=== PATIENT | male | born 1950 | race Caucasian/White ===

== ENCOUNTER 2017-06-19 21:38 | Emergency (ER) | payer MEDICARE, OTHER ==
[2017-06-19] MEDS ORDERED: Insulin Regular, Human 100 Units/ML 3 ML Vial SUBCUT ONE ×2 (22:12→22:58)
[2017-06-19] MEDS ORDERED: Metoprolol Tartrate 25 MG Tab PO ONE (22:14)
[2017-06-19] MEDS ORDERED: Sodium Chloride 0.9% 1,000 ML IV ONE (22:30)
--- NOTE | 2017-06-19 22:33 | EDM.PDOC ---
ED HPI GENERAL MEDICAL PROBLEM - General Chief Complaint: General Stated Complaint: Unsteady Gait, Hyperglycemia Time Seen by Provider: 06/19/17 22:11 Source of Information: Reports: Patient, Other ([facility] nursing staff) History Limitations: Reports: Other (Chronic cognitive decline) - History of Present Illness INITIAL COMMENTS - FREE TEXT/NARRATIVE: Patient sent from [facility] home for evaluation of elevated blood sugar. Their bedside glucose monitor read "over 500". Patient has zero complaints and feels fine when asked. ROS is entirely negative. He knows that he is in the hospital and realizes that it will soon be June. He cannot say the year nor what town he is in. [facility] noted only that he wasn't quite his usual self today and appeared a bit more unsteady on his feet. Also staff said that patient had complained about feeling uncomfortable in the abdomen earlier. However no noted other changes per staff, no recent illness/fevers/GI changes etc. Patient has been otherwise well. Has not taken evening meds. - Related Data Allergies Allergy/AdvReac Type Severity Reaction Status Date / Time No Known Allergies Allergy Verified 06/19/17 21:50 Home Meds: Home Meds Aspirin [Children's Aspirin] 81 mg PO DAILY 07/07/14 [History] Cyanocobalamin (Vitamin B-12) [Vitamin B-12] 1,000 mcg PO DAILY 07/07/14 [ History] FLUoxetine HCl [Prozac] 20 mg PO DAILY 07/07/14 [History] Lisinopril 10 mg PO DAILY 07/07/14 [History] Metoprolol Tartrate 25 mg PO BID 07/07/14 [History] Simvastatin [Zocor] 40 mg PO BEDTIME 07/07/14 [History] Insulin Glarg,Human.Rec.Analog [LantUS] 22 unit SUBCUT DAILY 08/25/14 [History] Ibuprofen 400 mg PO Q4H PRN 07/11/16 [History] Donepezil HCl [Aricept] 10 mg PO DAILY 06/19/17 [History] Hydrocodone/Acetaminophen [Hydrocodon-Acetaminophen 5-325] 1 tab PO Q4HR PRN [History] Memantine HCl [Namenda] 5 mg PO BID 06/19/17 [History] Past Medical History HEENT History: Reports: Impaired Vision Cardiovascular History: Reports: High Cholesterol, Hypertension, PVD Genitourinary History: Reports: Other (See Below) Other Genitourinary History: MIcroscopic hematuria Musculoskeletal History: Reports: Other (See Below) Other Musculoskeletal History: Dorsalgia Neurological History: Reports: CVA, TIA Psychiatric History: Reports: Anxiety, Other (See Below) Other Psychiatric History: 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 Endocrine/Metabolic History: Reports: Diabetes, Type II Hematologic History: Reports: B12 Deficiency Dermatologic History: Reports: Cellulitis, Other (See Below) Other Dermatologic History: Dermatitis Social & Family History - Family History Family Medical History: Noncontributory - Tobacco Use Smoking Status *Q: Current Every Day Smoker Years of Tobacco use: 55 Packs/Tins Daily: 1 - Caffeine Use Caffeine Use: Reports: Coffee - Alcohol Use Days Per Week of Alcohol Use: 0 - Recreational Drug Use Recreational Drug Use: No - Living Situation & Occupation Living situation: Reports: Single, Other ED ROS GENERAL - Review of Systems Review Of Systems: ROS reveals no pertinent complaints other than HPI. (See HPI for [facility] staff input. Patient denies all problems during ROS.) ED EXAM, GENERAL - Physical Exam Exam: See Below Exam Limited By: No Limitations General Appearance: Alert, WD/WN, No Apparent Distress Eye Exam: Bilateral Eye: EOMI, PERRL Ears: Normal External Exam, Normal Canal, Hearing Grossly Normal, Other (TMs blocked by cerumen, right greater than left) Nose: Normal Inspection Throat/Mouth: Normal Inspection, Normal Lips, Normal Gums, Normal Oropharynx, Normal Voice, No Airway Compromise, Other (has dentures) Head: Atraumatic, Normocephalic Neck: Normal Inspection, Supple, Non-Tender, Full Range of Motion. No: Lymphadenopathy (L), Lymphadenopathy (R) Respiratory/Chest: No Respiratory Distress, Lungs Clear, Normal Breath Sounds, No Accessory Muscle Use, Chest Non-Tender Cardiovascular: Normal Peripheral Pulses, Regular Rate, Rhythm, No Edema, No Murmur Peripheral Pulses: 2+: Radial (L), Radial (R), Dorsalis Pedis (L), Dorsalis Pedis (R) GI/Abdominal: Normal Bowel Sounds, Soft, Non-Tender, No Distention, Other (Has abdominal bruit noted. ) (Male) Exam: Deferred Rectal (Males) Exam: Deferred Back Exam: Normal Inspection. No: CVA Tenderness (L), CVA Tenderness (R), Muscle Spasm, Paraspinal Tenderness, Vertebral Tenderness Extremities: Normal Inspection, Normal Range of Motion, Non-Tender, No Pedal Edema, Normal Capillary Refill Neurological: Alert, Normal Reflexes, Memory Loss Recent Events, Other (equal tone/strength limbs) Psychiatric: Normal Affect, Normal Mood Skin Exam: Warm, Dry, Intact, Normal Color EKG INTERPRETATION EKG Date: 06/19/17 Time: 22:50 Rhythm: NSR Rate (Beats/Min): 99 Drake: Normal P-Wave: Present QRS: Other (Incomplete right BBB) ST-T: Normal QT: Normal Comparison: Other: (only previous EKG on file was sinus tachycardia) Course - Vital Signs Last Recorded V/S: Last Vital Signs Temp 37.3 C 06/19/17 21:43 Pulse 103 H 06/19/17 22:27 Resp 20 06/19/17 21:43 BP 198/70 H 06/19/17 22:27 Pulse Ox 94 L 06/19/17 21:43 - Orders/Labs/Meds Orders: Active Orders 24 hr Category Date Time Status EKG Documentation Completion [RC] ASDIRECTED Care 06/19/17 22:32 Ordered Head wo Cont [CT] Stat Exams 06/19/17 22:29 Ordered Insulin Regular, Human [HumuLIN R] Med 06/20/17 00:07 Once 10 unit SUBCUT ONETIME ONE Sodium Chloride 0.9% [Normal Saline] 1,000 ml Med 06/19/17 22:30 Ordered IV .BOLUS Medication Orders Sodium Chloride (Normal Saline) 1,000 mls @ 500 mls/hr IV .BOLUS ONE Stop: 06/20/17 00:29 Last Admin: 06/19/17 22:43 Dose: 500 mls/hr Insulin Human Regular (Humulin R) 10 unit SUBCUT ONETIME ONE PRN Reason: Protocol Stop: 06/20/17 00:08 Labs: Laboratory Tests 06/19/17 06/19/17 06/19/17 Range/Units 21:45 21:45 21:45 WBC 10.2 (4.0-10.2) K/uL RBC 4.91 (4.33-5.41) M/uL Hgb 15.6 D (13.1-16.8) g/dL Hct 51.8 H (39.0-49.0) % MCV 105.5 H D (84.0-98.0) fL MCH 31.8 (28.2-33.3) pg MCHC 30.1 L (31.7-36.0) g/dL RDW 13.6 (11.2-14.1) % Plt Count 173 D (150-350) K/uL Neut % (Auto) 90.9 H (45.0-80.0) % Lymph % (Auto) 4.8 L (10.0-50.0) % [place] % (Auto) 4.1 (2.0-14.0) % Eos % (Auto) 0.0 (0.0-5.0) % Baso % (Auto) 0.2 (0.0-2.0) % Neut # (Auto) 9.25 H (1.40-7.00) K/uL Lymph # (Auto) 0.49 L (0.50-3.50) K/uL [place] # (Auto) 0.42 (0.00-1.00) K/uL Eos # (Auto) 0.00 (0.00-0.50) K/uL Baso # (Auto) 0.02 (0.00-0.20) K/uL Sodium 130 L (136-145) mmol/L Potassium 5.5 H (3.5-5.1) mmol/L Chloride 93 L (98-107) mmol/L Carbon Dioxide 24.2 (21.0-32.0) mmol/L BUN 49 H D (7-18) mg/dL Creatinine 1.23 H (0.51-1.17) mg/dL Est Cr Clr Drug Dosing 46.76 mL/min Estimated GFR (MDRD) 59 mL/min Glucose 1586 H* (74-106) mg/dL Calcium 9.6 (8.5-10.1) mg/dL Total Bilirubin 0.3 (0.2-1.0) mg/dL AST 8 L (15-37) U/L ALT 28 (12-78) U/L Alkaline Phosphatase 197 H (46-116) IU/L Troponin I 0.029 (0.000-0.056) ng/mL Total Protein 7.8 (6.4-8.2) g/dL Albumin 4.1 (3.4-5.0) g/dL Specimen Type Urine Color Urine Appearance Urine pH (5.0-9.0) Ur Specific [place] (1.005-1.030) Urine Protein (NEGATIVE) mg/dL Urine Glucose (UA) (NEGATIVE) mg/dL Urine Ketones (NEGATIVE) mg/dL Urine Occult Blood (NEGATIVE) Urine Nitrite (NEGATIVE) Urine Bilirubin (NEGATIVE) Urine Urobilinogen (0.2-1.0) E.U./dL Ur Leukocyte Esterase (NEGATIVE) Urine RBC /HPF Urine WBC /HPF Ur Epithelial Cells /LPF Urine Bacteria (NONE TO FEW) /HPF 06/19/17 06/19/17 Range/Units 22:10 23:45 WBC (4.0-10.2) K/uL RBC (4.33-5.41) M/uL Hgb (13.1-16.8) g/dL Hct (39.0-49.0) % MCV (84.0-98.0) fL MCH (28.2-33.3) pg MCHC (31.7-36.0) g/dL RDW (11.2-14.1) % Plt Count (150-350) K/uL Neut % (Auto) (45.0-80.0) % Lymph % (Auto) (10.0-50.0) % [place] % (Auto) (2.0-14.0) % Eos % (Auto) (0.0-5.0) % Baso % (Auto) (0.0-2.0) % Neut # (Auto) (1.40-7.00) K/uL Lymph # (Auto) (0.50-3.50) K/uL [place] # (Auto) (0.00-1.00) K/uL Eos # (Auto) (0.00-0.50) K/uL Baso # (Auto) (0.00-0.20) K/uL Sodium (136-145) mmol/L Potassium (3.5-5.1) mmol/L Chloride (98-107) mmol/L Carbon Dioxide (21.0-32.0) mmol/L BUN (7-18) mg/dL Creatinine (0.51-1.17) mg/dL Est Cr Clr Drug Dosing mL/min Estimated GFR (MDRD) mL/min Glucose 1440 H* (74-106) mg/dL Calcium (8.5-10.1) mg/dL Total Bilirubin (0.2-1.0) mg/dL AST (15-37) U/L ALT (12-78) U/L Alkaline Phosphatase (46-116) IU/L Troponin I (0.000-0.056) ng/mL Total Protein (6.4-8.2) g/dL Albumin (3.4-5.0) g/dL Specimen Type Urinvoid Urine Color Yellow Urine Appearance Clear Urine pH 5.0 (5.0-9.0) Ur Specific [place] <= 1.005 (1.005-1.030) Urine Protein Negative (NEGATIVE) mg/dL Urine Glucose (UA) 500 H (NEGATIVE) mg/dL Urine Ketones Negative (NEGATIVE) mg/dL Urine Occult Blood Negative (NEGATIVE) Urine Nitrite Negative (NEGATIVE) Urine Bilirubin Negative (NEGATIVE) Urine Urobilinogen 0.2 (0.2-1.0) E.U./dL Ur Leukocyte Esterase Negative (NEGATIVE) Urine RBC 0-5 /HPF Urine WBC 0-5 /HPF Ur Epithelial Cells Rare /LPF Urine Bacteria Rare (NONE TO FEW) /HPF Meds: Medications Generic Name Dose Route Start Last Admin Trade Name Freq PRN Reason Stop Dose Admin Sodium Chloride 1,000 mls @ 500 mls/hr 06/19/17 22:30 06/19/17 22:43 Normal Saline IV 06/20/17 00:29 500 mls/hr .BOLUS ONE Administration Insulin Human Regular 10 unit 06/20/17 00:07 Humulin R SUBCUT 06/20/17 00:08 ONETIME ONE Protocol Discontinued Medications Generic Name Dose Route Start Last Admin Trade Name Freq PRN Reason Stop Dose Admin Insulin Human Regular 10 unit 06/20/17 22:12 Humulin R SUBCUT 06/20/17 22:13 ONETIME ONE Protocol Insulin Human Regular 10 unit 06/19/17 22:12 06/19/17 22:39 Humulin R SUBCUT 06/19/17 22:13 10 units ONETIME ONE Administration Protocol Insulin Human Regular 5 unit 06/19/17 22:58 06/19/17 23:09 Humulin R SUBCUT 06/19/17 22:59 5 unit ONETIME ONE Administration Protocol Metoprolol Tartrate 25 mg 06/19/17 22:14 06/19/17 22:27 Lopressor PO 06/19/17 22:15 25 mg ONETIME ONE Administration - Radiology Interpretation Free Text/Narrative:: No acute changes on head CT per Radiology CT Results Date: 06/19/17 CT Results Time: 23:57 - Re-Assessments/Exams Free Text/Narrative Re-Assessment/Exam: 06/19/17 22:43 IV access obtained. Patient ordered 10u regular insulin SQ. Labs requested. NS IV fluids started. Blood sugar noted to be 1586. WBC normal. Hgb high normal, HCT also elevated. Na 130 BUN/Cr elevated. K 5.5 Troponin within normal limits. Call placed to [facility] in [place] to check to see if they were potentially open to admission as patient would require admission for treatment of hyperglycemia. MOD requested that we include head CT in workup and this was ordered. Patient given evening dose of Metoprolol. BP elevated. UA request still pending. Exam non-focal overall. Free Text/Narrative Re-Assessment/Exam: 06/20/17 00:09 Patient continues to rest comfortably. BP improved after receiving Metoprolol. No complaints. Unremarkable head CT. UA did not reveal UTI. Blood sugar improved to 1440. Additional SQ insulin given. Results called to at [facility]. He accepted the patient for transfer to their facility for admission and treatment of hyperglycemia. No specific trigger for hyperglycemic episode identified at this time. Departure - Departure Time of Disposition: 00:13 Disposition: DC/[facility] to [facility] Condition: Good Clinical Impression: Hyperglycemia, Hyponatremia - Discharge Information Referrals: Lilia Martinez MD [Primary Care Provider] - Forms: ED Department Discharge - My Orders Last 24 Hours: My Active Orders 06/20/17 00:07 Insulin Regular, Human [HumuLIN R] 10 unit SUBCUT ONETIME ONE 06/19/17 22:29 Head wo Cont [CT] Stat 06/19/17 22:30 Sodium Chloride 0.9% [Normal Saline] 1,000 ml IV .BOLUS 06/19/17 22:32 EKG Documentation Completion [RC] ASDIRECTED - Assessment/Plan Last 24 Hours: My Active Orders 06/20/17 00:07 Insulin Regular, Human [HumuLIN R] 10 unit SUBCUT ONETIME ONE 06/19/17 22:29 Head wo Cont [CT] Stat 06/19/17 22:30 Sodium Chloride 0.9% [Normal Saline] 1,000 ml IV .BOLUS 06/19/17 22:32 EKG Documentation Completion [RC] ASDIRECTED
[2017-06-20] MEDS ORDERED: Insulin Regular, Human 100 Units/ML 3 ML Vial SUBCUT ONE ×2 (00:07→22:12)
[2017-06-20] MEDS: Sodium Chloride 0.9% 1,000 ML IV ONE ×2 (00:40→04:16)
[2017-06-20 06:20] VITALS: BP 176/73
== END 2017-06-20 00:45 ==
LOC: LL.ED 21:38
DX: E11.65 Type 2 diabetes mellitus with hyperglycemia (principal); E87.1 Hypo-osmolality and hyponatremia; I10 Essential (primary) hypertension; E78.00 Pure hypercholesterolemia, unspecified; Z79.82 Long term (current) use of aspirin; Z79.4 Long term (current) use of insulin; Z79.899 Other long term (current) drug therapy
CPT/HCPCS: 36415; 70450; 80053; 81001; 82947; 84484; 85025; 93005; 96360; 96361; 96372; 99285; A9270; J1815; J7030; 93010

== ENCOUNTER 2018-11-19 07:09 | Emergency (ER) | payer MEDICARE, MEDICAID ==
--- NOTE | 2018-11-19 07:39 | EDM.PDOC ---
ED HPI GENERAL MEDICAL PROBLEM - General Chief Complaint: General Stated Complaint: hyperglycemic Time Seen by Provider: 11/19/18 07:20 Source of Information: Reports: [facility] Records History Limitations: Reports: Altered Mental Status - History of Present Illness INITIAL COMMENTS - FREE TEXT/NARRATIVE: Patient is a 68-year-old gentleman with known history of dementia it was noted that he refused all cares, they were able to get a blood sugar which was higher then glucometer and he was sent from the sn[facility] to the hospital for evaluation. Patient does admit of being dry. 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 - Related Data Allergies Allergy/AdvReac Type Severity Reaction Status Date / Time No Known Allergies Allergy Verified 06/19/17 21:50 Home Meds: Home Meds Insulin Glarg,Human.Rec.Analog [LantUS] 30 unit SUBCUT DAILY 08/25/14 [History] Hydrocortisone [Hydrocortisone 1% Crm] 28.4 gm TOP ASDIRECTED PRN 11/19/18 [ History] Insulin Aspart [NovoLOG] 10 unit SQ DAILY@2030 11/19/18 [History] Past Medical History HEENT History: Reports: Impaired Vision Cardiovascular History: Reports: High Cholesterol, Hypertension, PVD Genitourinary History: Reports: Other (See Below) Other Genitourinary History: MIcroscopic hematuria Musculoskeletal History: Reports: Other (See Below) Other Musculoskeletal History: Dorsalgia Neurological History: Reports: CVA, TIA Psychiatric History: Reports: Anxiety, Other (See Below) Other Psychiatric History: 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 Endocrine/Metabolic History: Reports: Diabetes, Type II Hematologic History: Reports: B12 Deficiency Dermatologic History: Reports: Cellulitis, Other (See Below) Other Dermatologic History: Dermatitis Social & Family History - Family History Family Medical History: Noncontributory - Caffeine Use Caffeine Use: Reports: Coffee - Living Situation & Occupation Living situation: Reports: Single, Other ED ROS GENERAL - Review of Systems Review Of Systems: See Below Constitutional: Reports: No Symptoms Respiratory: Reports: Shortness of Breath Cardiovascular: Reports: No Symptoms Endocrine: Reports: High Glucose GI/Abdominal: Reports: No Symptoms : Reports: No Symptoms Musculoskeletal: Reports: No Symptoms Skin: Reports: No Symptoms Neurological: Reports: Confusion Psychiatric: Reports: Agitation, Confusion Hematologic/Lymphatic: Reports: No Symptoms ED EXAM, GENERAL - Physical Exam Exam: See Below Exam Limited By: Altered Mental Status General Appearance: Alert, WD/WN, Anxious, Thin, Cachetic Ears: Normal External Exam, Normal Canal, Hearing Grossly Normal, Normal TMs Ear Exam: Bilateral Ear: Auricle Normal, Canal Normal, TM normal Nose: Normal Inspection, Normal Mucosa, No Blood Throat/Mouth: Normal Inspection, Normal Lips, Normal Teeth, Normal Gums, Normal Oropharynx, Normal Voice, No Airway Compromise, Other (Breath smells fruity) Head: Atraumatic, Normocephalic Neck: Normal Inspection, Supple, Non-Tender, Full Range of Motion Respiratory/Chest: Decreased Breath Sounds, Prolonged Expiration Cardiovascular: Normal Peripheral Pulses, Regular Rate, Rhythm, No Edema, No Gallop, No JVD, No Murmur, No Rub GI/Abdominal: Normal Bowel Sounds, Soft, Non-Tender, No Organomegaly, No Distention, No Abnormal Bruit, No Mass (Male) Exam: Deferred Rectal (Males) Exam: Deferred Back Exam: Normal Inspection, Full Range of Motion, NT Extremities: Normal Inspection, Normal Range of Motion, Non-Tender, Normal Capillary Refill, No Pedal Edema Neurological: No: Normal Cognition Psychiatric: Other (Confused, dementia) Skin Exam: Warm, Dry, Cool Lymphatic: No Adenopathy Course - Vital Signs Last Recorded V/S: Last Vital Signs Temp Pulse 100 11/19/18 07:41 Resp 32 H 11/19/18 07:41 BP 171/60 H 11/19/18 07:41 Pulse Ox 100 11/19/18 07:41 - Orders/Labs/Meds Orders: Active Orders 24 hr Category Date Time Status Chest 1V Frontal [CR] Stat Exams 11/19/18 07:44 Ordered BASIC METABOLIC PANEL,BMP [CHEM] Stat Lab 11/19/18 11:17 Ordered CULTURE BLOOD [BC] Stat Lab 11/19/18 07:53 Ordered CULTURE BLOOD [BC] Stat Lab 11/19/18 07:53 Ordered UA W/MICROSCOPIC [URIN] Stat Lab 11/19/18 07:43 Ordered Levofloxacin/Dextrose 5%-Water [Levaquin in D5W 500 MG/ Med 11/19/18 08:45 Ordered 100 ML] 500 mg Premix Bag 1 bag IV Q24H Potassium Chloride [KCl 10 MEQ in Water 50 ML] 10 meq Med 11/19/18 09:15 Ordered Premix Bag 1 bag IV Q1H Sodium Chloride 0.9% [Normal Saline] 1,000 ml Med 11/19/18 08:00 Ordered IV ASDIRECTED Sodium Chloride 0.9% [Normal Saline] 1,000 ml Med 11/19/18 10:15 Ordered IV ASDIRECTED Blood Culture x2 Reflex Set [OM.PC] Stat Oth 11/19/18 07:53 Ordered Medication Orders Sodium Chloride (Normal Saline) 1,000 mls @ 500 mls/hr IV ASDIRECTED EFRAIN Last Admin: 11/19/18 07:57 Dose: 500 mls/hr Levofloxacin/Dextrose 500 mg/ (Premix) 100 mls @ 100 mls/hr IV Q24H EFRAIN Last Admin: 11/19/18 09:44 Dose: 100 mls/hr Potassium Chloride 10 meq/ (Premix) 50 mls @ 50 mls/hr IV Q1H [facility] Stop: 11/19/18 13:14 Last Admin: 11/19/18 09:52 Dose: 50 mls/hr Sodium Chloride (Normal Saline) 1,000 mls @ 500 mls/hr IV ASDIRECTED EFRAIN Labs: Laboratory Tests 11/19/18 11/19/18 11/19/18 Range/Units 07:15 07:15 07:15 WBC 23.0 H (4.0-10.2) K/uL RBC 5.15 (4.33-5.41) M/uL Hgb 15.8 D (13.1-16.8) g/dL Hct 50.0 H (39.0-49.0) % MCV 97.1 D (84.0-98.0) fL MCH 30.7 (28.2-33.3) pg MCHC 31.6 L (31.7-36.0) g/dL RDW 14.5 H (11.2-14.1) % Plt Count 289 D (150-350) K/uL Neut % (Auto) 89.3 H (45.0-80.0) % Lymph % (Auto) 2.3 L (10.0-50.0) % Armstrong % (Auto) 8.3 (2.0-14.0) % Eos % (Auto) 0.0 (0.0-5.0) % Baso % (Auto) 0.1 (0.0-2.0) % Neut # (Auto) 20.56 H (1.40-7.00) K/uL Lymph # (Auto) 0.53 (0.50-3.50) K/uL Armstrong # (Auto) 1.91 H (0.00-1.00) K/uL Eos # (Auto) 0.00 (0.00-0.50) K/uL Baso # (Auto) 0.02 (0.00-0.20) K/uL Sodium 129 L (136-145) mmol/L Potassium 4.7 (3.5-5.1) mmol/L Chloride 93 L (98-107) mmol/L Carbon Dioxide < 5.0 L* D (21.0-32.0) mmol/L BUN 51 H (7-18) mg/dL Creatinine 2.21 H (0.51-1.17) mg/dL Est Cr Clr Drug Dosing 25.03 mL/min Estimated GFR (MDRD) 30 mL/min Glucose 879 H* (74-106) mg/dL POC Glucose (65-110) mg/dl Hemoglobin A1c 11.3 H (4.3-5.7) % Lactic Acid (0.4-2.0) mmol/L Calcium 9.5 (8.5-10.1) mg/dL Total Bilirubin 0.7 (0.2-1.0) mg/dL AST 174 H (15-37) U/L ALT 119 H (12-78) U/L Alkaline Phosphatase 197 H (46-116) IU/L Total Protein 7.6 (6.4-8.2) g/dL Albumin 2.8 L (3.4-5.0) g/dL Ketones 11/19/18 11/19/18 11/19/18 Range/Units 08:15 08:15 09:16 WBC (4.0-10.2) K/uL RBC (4.33-5.41) M/uL Hgb (13.1-16.8) g/dL Hct (39.0-49.0) % MCV (84.0-98.0) fL MCH (28.2-33.3) pg MCHC (31.7-36.0) g/dL RDW (11.2-14.1) % Plt Count (150-350) K/uL Neut % (Auto) (45.0-80.0) % Lymph % (Auto) (10.0-50.0) % Armstrong % (Auto) (2.0-14.0) % Eos % (Auto) (0.0-5.0) % Baso % (Auto) (0.0-2.0) % Neut # (Auto) (1.40-7.00) K/uL Lymph # (Auto) (0.50-3.50) K/uL Armstrong # (Auto) (0.00-1.00) K/uL Eos # (Auto) (0.00-0.50) K/uL Baso # (Auto) (0.00-0.20) K/uL Sodium (136-145) mmol/L Potassium (3.5-5.1) mmol/L Chloride (98-107) mmol/L Carbon Dioxide (21.0-32.0) mmol/L BUN (7-18) mg/dL Creatinine (0.51-1.17) mg/dL Est Cr Clr Drug Dosing mL/min Estimated GFR (MDRD) mL/min Glucose (74-106) mg/dL POC Glucose > 500 H* (65-110) mg/dl Hemoglobin A1c (4.3-5.7) % Lactic Acid 1.6 (0.4-2.0) mmol/L Calcium (8.5-10.1) mg/dL Total Bilirubin (0.2-1.0) mg/dL AST (15-37) U/L ALT (12-78) U/L Alkaline Phosphatase (46-116) IU/L Total Protein (6.4-8.2) g/dL Albumin (3.4-5.0) g/dL Ketones Positive 11/19/18 Range/Units 10:14 WBC (4.0-10.2) K/uL RBC (4.33-5.41) M/uL Hgb (13.1-16.8) g/dL Hct (39.0-49.0) % MCV (84.0-98.0) fL MCH (28.2-33.3) pg MCHC (31.7-36.0) g/dL RDW (11.2-14.1) % Plt Count (150-350) K/uL Neut % (Auto) (45.0-80.0) % Lymph % (Auto) (10.0-50.0) % Armstrong % (Auto) (2.0-14.0) % Eos % (Auto) (0.0-5.0) % Baso % (Auto) (0.0-2.0) % Neut # (Auto) (1.40-7.00) K/uL Lymph # (Auto) (0.50-3.50) K/uL Armstrong # (Auto) (0.00-1.00) K/uL Eos # (Auto) (0.00-0.50) K/uL Baso # (Auto) (0.00-0.20) K/uL Sodium (136-145) mmol/L Potassium (3.5-5.1) mmol/L Chloride (98-107) mmol/L Carbon Dioxide (21.0-32.0) mmol/L BUN (7-18) mg/dL Creatinine (0.51-1.17) mg/dL Est Cr Clr Drug Dosing mL/min Estimated GFR (MDRD) mL/min Glucose (74-106) mg/dL POC Glucose > 500 H* (65-110) mg/dl Hemoglobin A1c (4.3-5.7) % Lactic Acid (0.4-2.0) mmol/L Calcium (8.5-10.1) mg/dL Total Bilirubin (0.2-1.0) mg/dL AST (15-37) U/L ALT (12-78) U/L Alkaline Phosphatase (46-116) IU/L Total Protein (6.4-8.2) g/dL Albumin (3.4-5.0) g/dL Ketones Meds: Medications Generic Name Dose Route Start Last Admin Trade Name Freq PRN Reason Stop Dose Admin Sodium Chloride 1,000 mls @ 500 mls/hr 11/19/18 08:00 11/19/18 07:57 Normal Saline IV 500 mls/hr ASDIRECTED EFRAIN Administration Levofloxacin/Dextrose 500 mg/ 100 mls @ 100 mls/hr 11/19/18 08:45 11/19/18 09 :44 Premix IV 100 mls/hr Q24H EFRAIN Administration Potassium Chloride 10 meq/ 50 mls @ 50 mls/hr 11/19/18 09:15 11/19/18 09:52 Premix IV 11/19/18 13:14 50 mls/hr Q1H EFRAIN Administration Sodium Chloride 1,000 mls @ 500 mls/hr 11/19/18 10:15 Normal Saline IV ASDIRECTED EFRAIN Discontinued Medications Generic Name Dose Route Start Last Admin Trade Name Freq PRN Reason Stop Dose Admin Insulin Human Regular 5 unit 11/19/18 09:06 11/19/18 09:22 Humulin R IV 11/19/18 09:07 5 unit ONETIME ONE Administration Insulin Human Regular 10 unit 11/19/18 10:20 11/19/18 10:24 Humulin R IV 11/19/18 10:21 10 unit ONETIME ONE Administration Departure - Departure Time of Disposition: 10:30 Disposition: DC/Tfer to [facility]/[place] [facility] Condition: Serious Clinical Impression: Pneumonia, Pneumonia, Acute renal failure, Diabetes mellitus type 2, Hyperglycemia - Discharge Information *PRESCRIPTION DRUG MONITORING PROGRAM REVIEWED*: No *COPY OF PRESCRIPTION DRUG MONITORING REPORT IN PATIENT YESY: No Forms: ED Department Discharge Care Plan Goals: We will transfer to [facility] - Problem List & Annotations (1) Diabetic ketoacidosis SNOMED Code(s): 448354136, 197097714 Code(s): E11.10 - TYPE 2 DIABETES MELLITUS WITH KETOACIDOSIS WITHOUT COMA Status: Acute Current Visit: Yes (2) Acute renal failure SNOMED Code(s): 75822563 Code(s): N17.9 - ACUTE KIDNEY FAILURE, UNSPECIFIED Status: Acute Current Visit: Yes (3) Pneumonia SNOMED Code(s): 427672017 Code(s): J18.9 - PNEUMONIA, UNSPECIFIED ORGANISM Status: Acute Current Visit: Yes Qualifiers: Pneumonia type: due to unspecified organism Lung location: lower lobe of lung - Problem List Review Problem List Initiated/Reviewed/Updated: Yes - My Orders Last 24 Hours: My Active Orders 11/19/18 07:43 UA W/MICROSCOPIC [URIN] Stat 11/19/18 07:44 Chest 1V Frontal [CR] Stat 11/19/18 07:53 CULTURE BLOOD [BC] Stat CULTURE BLOOD [BC] Stat Blood Culture x2 Reflex Set [OM.PC] Stat 11/19/18 08:00 Sodium Chloride 0.9% [Normal Saline] 1,000 ml IV ASDIRECTED 11/19/18 08:45 Levofloxacin/Dextrose 5%-Water [Levaquin in D5W 500 MG/100 ML] 500 mg Premix Bag 1 bag IV Q24H 11/19/18 09:15 Potassium Chloride [KCl 10 MEQ in Water 50 ML] 10 meq Premix Bag 1 bag IV Q1H 11/19/18 10:15 Sodium Chloride 0.9% [Normal Saline] 1,000 ml IV ASDIRECTED 11/19/18 11:17 BASIC METABOLIC PANEL,BMP [CHEM] Stat - Assessment/Plan Last 24 Hours: My Active Orders 11/19/18 07:43 UA W/MICROSCOPIC [URIN] Stat 11/19/18 07:44 Chest 1V Frontal [CR] Stat 11/19/18 07:53 CULTURE BLOOD [BC] Stat CULTURE BLOOD [BC] Stat Blood Culture x2 Reflex Set [OM.PC] Stat 11/19/18 08:00 Sodium Chloride 0.9% [Normal Saline] 1,000 ml IV ASDIRECTED 11/19/18 08:45 Levofloxacin/Dextrose 5%-Water [Levaquin in D5W 500 MG/100 ML] 500 mg Premix Bag 1 bag IV Q24H 11/19/18 09:15 Potassium Chloride [KCl 10 MEQ in Water 50 ML] 10 meq Premix Bag 1 bag IV Q1H 11/19/18 10:15 Sodium Chloride 0.9% [Normal Saline] 1,000 ml IV ASDIRECTED 11/19/18 11:17 BASIC METABOLIC PANEL,BMP [CHEM] Stat Plan: Spoke with Dr. Merlos chief lending officer [facility] assessment the patient we will transfer patient to [place] via ambulance. Spoke with sister agreed on transfer.
[2018-11-19 07:47] LABS: CHLORIDE,CL 93 mmol/L (98-107); SODIUM,NA 129 mmol/L (136-145)
[2018-11-19 07:55] LABS: HEMOGLOBIN A1C 11.3 % (4.3-5.7)
[2018-11-19] MEDS ORDERED: Sodium Chloride 0.9% 1,000 ML IV SCH ×2 (08:00→10:15)
[2018-11-19] MEDS ORDERED: Levofloxacin/Dextrose 5%-Water 500 MG in Premix Bag 1 BAG IV SCH (08:45)
[2018-11-19] MEDS ORDERED: Insulin Regular, Human 100 Units/ML 3 ML Vial IV ONE ×2 (09:06→10:20)
[2018-11-19] MEDS: Potassium Chloride 10 MEQ in Premix Bag 1 BAG IV SCH ×2 (09:52→11:10)
[2018-11-19 10:45] VITALS: BP 122/77
[2018-11-19 11:13] LABS: CHLORIDE,CL 101 mmol/L (98-107); SODIUM,NA 133 mmol/L (136-145)
== END 2018-11-19 11:30 ==
LOC: LL.ED 07:09
DX: J18.9 Pneumonia, unspecified organism (principal); E11.10 Type 2 diabetes mellitus with ketoacidosis without coma; N17.9 Acute kidney failure, unspecified; E78.00 Pure hypercholesterolemia, unspecified; I10 Essential (primary) hypertension; E11.65 Type 2 diabetes mellitus with hyperglycemia; Z79.4 Long term (current) use of insulin; Z79.899 Other long term (current) drug therapy; Z86.73 Personal history of transient ischemic attack (TIA), and cerebral infarction without residual deficits
CPT/HCPCS: 36415; 71045; 80048; 80053; 82009; 82962; 83036; 83605; 85025; 87040; 96361; 96365; 96367; 96368; 96375; 96376; 99284; 99285-25; A4217; J1815-GY; J1956; J3480; J7030